=== PATIENT | female | born 1970 | race Caucasian/White ===

== ENCOUNTER → 2017-06-27 | Outpatient (REF) ==
--- NOTE | 2017-06-27 15:58 | REP ---
PARTIAL LUMBAR SPINE, THREE VIEWS: HISTORY: Degenerative disc disease. There is no acute fracture. The intervertebral discs are decreased in height consistent with disc degeneration. Osteophytes are present on L3-5. There are 3 mm of grade 1 spondylolisthesis of L4 on 5. IMPRESSION: Degenerative change as described above. Signed by Jus Gusman MD 06/27/2017 04:02 P
== END ==
LOC: M SMT 14:49
PROVIDERS: ATTEND Internal Medicine
DX: Z02.9 Encounter for administrative examinations, unspecified (principal)